=== PATIENT | male | born 1945 | race Caucasian/White ===

== ENCOUNTER 2024-07-18 03:19 | Inpatient (IN) | payer OTHER ==
[2024-07-18] MEDS ORDERED: VANCOMYCIN 1 GRAM (PRE-DOCKED) 1,000 MG/250 ML BAG IVPB ONE (03:38)
[2024-07-18] MEDS ORDERED: CEFEPIME 1 GM/100 ML BAG IVPB ONE (03:39)
[2024-07-18 03:40] LABS: VENOUS BASE EXCESS -3.4 mmol/L (-2-2); VENOUS O2 SATURATION 79.1 % (70-80); VENOUS PCO2 66.4 mmHg (38-52); VENOUS PH 7.21 (7.310-7.410)
[2024-07-18 03:42] LABS: BASO % 0.1 % (0-2.0); EOS % 0.1 % (0-4.5); HEMATOCRIT 41.6 % (35.4-49); HEMOGLOBIN 13.4 GM/dL (11.7-16.9); LYMPH % 5.2 % (8-40); MCH 29.8 pg (25.7-33.7); MCHC 32.3 g/dl (32.0-35.9); MEAN CELL VOLUME 92.1 fl (80-96); MEAN PLT VOLUME 7.2 fl (7.5-11.1); MONO % 10.3 % (3.8-10.2); NEUT % 84.3 % (42.8-82.8); PLATELET COUNT 290 10^3/uL (134-434); RBC 4.51 M/mm3 (4.00-5.60); RDW 14.2 % (11.9-15.9); WHITE BLOOD COUNT 15.5 K/mm3 (4.0-10.0)
[2024-07-18] MEDS: SODIUM CHLORIDE 0.9% 500 ML INFUS.BAG IV ONE (03:44)
[2024-07-18] MEDS: CEFEPIME HCL 1 GM VIAL (RESTRICTED TO ID) IVPB ONE (03:44)
[2024-07-18] MEDS: ALBUTEROL SO4 2.5/IPRATROPIUM 0.5 INH SOL 3 ML VIAL.NEB. NEB SCH ×2 (03:44→16:30)
[2024-07-18] MEDS: methylPREDNISolone NA SUCC 125 MG/2 ML VIAL IVPUSH ONE (03:44)
[2024-07-18] MEDS ORDERED: ACETAMINOPHEN INJECTION 100 ML ONE (03:45)
[2024-07-18] MEDS: ACETAMINOPHEN 1000 MG/100 ML BAG IVPB ONE (03:47)
[2024-07-18 03:56] LABS: INR 1.11 (0.83-1.09); PROTHROMBIN TIME (PATIENT) 12.5 SEC (9.7-13.0)
[2024-07-18 03:58] LABS: ACTIVATED PTT 33.6 SECONDS (25.2-36.5)
[2024-07-18 04:00] LABS: POTASSIUM 4.5 mmol/L (3.5-5.1)
[2024-07-18 04:03] LABS: ALBUMIN 3.2 g/dl (3.4-5.0); MAGNESIUM 2.3 mg/dL (1.8-2.4)
[2024-07-18 04:06] LABS: CREATININE 0.8 mg/dL (0.55-1.3); PHOSPHOROUS 3.2 mg/dL (2.5-4.9)
[2024-07-18 04:07] LABS: BILIRUBIN,TOTAL 0.5 mg/dL (0.2-1); TOT PROT 6.8 g/dl (6.4-8.2)
[2024-07-18 04:11] LABS: N-TERMINAL BNP 1590.4 pg/ml (5-450)
[2024-07-18] MEDS: VANCOMYCIN 1,000 MG in DEXTROSE 5%-WATER - 250 ML IVPB ONE (04:12)
[2024-07-18] MEDS ORDERED: ETOMIDATE 20 MG/10 ML VIAL IVPUSH ONE (04:36)
[2024-07-18] MEDS ORDERED: ROCURONIUM BROMIDE 50 MG/5 ML SYRINGE ONE (04:36)
[2024-07-18] MEDS ORDERED: ACETAMINOPHEN 1000 MG/100 ML BAG IVPB PRN (05:29)
[2024-07-18 05:39] LABS: EPI CELLS 7 /uL (0-25.1); HYALINE CASTS 1 /uL (0-3.1); URINE APPEARANCE CLOUDY; URINE BACTERIA >9,000 /uL (0-1359); URINE BILIRUBIN NEGATIVE (NEGATIVE); URINE COLOR YELLOW; URINE GLUCOSE (UA) NEGATIVE (NEGATIVE); URINE KETONE NEGATIVE (NEGATIVE); URINE LEUK ESTERASE 2+ (NEGATIVE); URINE NITRITE POSITIVE (NEGATIVE); URINE PROTEIN 2+ (NEGATIVE); URINE RBC 63 /uL (0-23.9); URINE UROBILINOGEN 0.2 mg/dL (0.2-1.0); URINE WBC 1321 /uL (0-25.8)
[2024-07-18] MEDS: ROCURONIUM BROMIDE 50 MG/5 ML VIAL IV ONE (05:41)
[2024-07-18] MEDS: ETOMIDATE 20 MG/10 ML VIAL IVPUSH ONE (05:41)
[2024-07-18] MEDS ORDERED: AMIODARONE IN DEXTROSE,ISO-OSM 150 MG/100 ML BAG ONE (05:51)
[2024-07-18] MEDS: FENTANYL NS IVPB 500 MCG/100 ML BAG IVPB SCH (05:56)
[2024-07-18] MEDS: PROPOFOL 1,000,000 MCG/100 ML VIAL IVPB SCH (05:56)
[2024-07-18] MEDS: AMIODARONE IN DEXTROSE,ISO-OSM 150 MG/100 ML BAG IVPB ONE (05:57)
[2024-07-18] MEDS: NOREPINEPHRINE BITARTRATE 4,000 MCG in DEXTROSE 5%-WATER - 496 ML IV SCH (06:00)
[2024-07-18] MEDS: AMIODARONE IN DEXTROSE,ISO-OSM 360 MG/200 ML BAG IV SCH ×2 (06:00→12:22)
[2024-07-18] MEDS ORDERED: NOREPINEPHRINE BITARTRATE 4 MG/4 ML ML IV ONE (06:20)
[2024-07-18 06:23] LABS: ARTERIAL BLD GAS O2 SATURATION 99.1 % (95-98); ARTERIAL BLOOD GAS BASE EXCESS -2.2 mmol/L (-2-2); ARTERIAL BLOOD GAS PO2 183.4 mmHg (80-100); ARTERIAL BLOOD GAS pH 7.308 (7.350-7.450)
[2024-07-18 06:24] LABS: ALLENS TEST POSITIVE; VENT MODE A/C
[2024-07-18 06:25] LABS: VENT RATE 20
[2024-07-18] MEDS: MIDAZOLAM IN 0.9 % SOD.CHLORID 100 MG/100 ML PLAST..BAG IVPB SCH (07:49)
[2024-07-18] MEDS: PANTOPRAZOLE SODIUM 40 MG VIAL IVPUSH SCH (09:09)
[2024-07-18] MEDS: PIPERACILLIN/TAZOB 4.5 GM 4.5 GM in DEXTROSE 5%-WATER 100 ML IVPB SCH ×2 (09:09→17:19)
[2024-07-18] MEDS: ENOXAPARIN NA (PORCINE) 40 MG/0.4 ML DISP.SYRIN SQ SCH (09:09)
[2024-07-18] MEDS: POLYETHYLENE GLYCOL (HEALTHYLAX) 3350 17 GM PACKET PO SCH (09:09)
[2024-07-18] MEDS: HYDROCORTISONE SOD SUCCINATE 100 MG/2 ML VIAL IVPUSH SCH (09:49)
[2024-07-18] MEDS: OFLOXACIN 0.3% OPHTHALMIC SOLUTION 5 ML BOTTLE OU SCH (09:50)
[2024-07-18] MEDS: MUPIROCIN 2% TOPICAL OINTMENT FOR DECOLONIZATION NS SCH (09:50)
[2024-07-18] MEDS ORDERED: ALBUTEROL SO4 2.5/IPRATROPIUM 0.5 INH SOL 3 ML VIAL.NEB. NEB SCH (12:45)
[2024-07-18] MEDS ORDERED: VANCOMYCIN PREMIX 1.5 GM 1,500 MG/300 ML BAG IVPB SCH (15:00)
[2024-07-18] MEDS: VANCOMYCIN PREMIX 1.5 GM 1,500 MG/300 ML BAG IVPB SCH (20:40)
[2024-07-18] MEDS: CHLORHEXIDINE GLUCONATE 4% CLEANSER FOR DECOLONIZATION TP SCH (23:23)
[2024-07-19 06:56] LABS: HEMATOCRIT 36.2 % (35.4-49); HEMOGLOBIN 11.9 GM/dL (11.7-16.9); MCH 29.6 pg (25.7-33.7); MCHC 32.8 g/dl (32.0-35.9); MEAN CELL VOLUME 90.2 fl (80-96); MEAN PLT VOLUME 7.6 fl (7.5-11.1); PLATELET COUNT 279 10^3/uL (134-434); RBC 4.01 M/mm3 (4.00-5.60); WHITE BLOOD COUNT 21.5 K/mm3 (4.0-10.0)
[2024-07-19 06:57] LABS: CALCIUM 8.8 mg/dL (8.5-10.1)
[2024-07-19 07:01] LABS: CREATININE 0.9 mg/dL (0.55-1.3)
[2024-07-19 07:02] LABS: TOT PROT 5.3 g/dl (6.4-8.2)
[2024-07-19 09:06] LABS: ANISOCYTOSIS 0; MACROCYTOSIS 0
[2024-07-19] MEDS: KCL 10 MEQ IVPB 10 MEQ/100 ML INFUS.BAG IVPB SCH (09:15)
[2024-07-19] MEDS: POTASSIUM CHLORIDE ORAL LIQUID 20 MEQ/15 ML PO ONE (09:17)
[2024-07-19 09:20] LABS: POTASSIUM 3.3 mmol/L (3.5-5.1)
[2024-07-19 09:22] LABS: ALBUMIN 2.4 g/dl (3.4-5.0); BLOOD UREA NITROGEN 25.6 mg/dL (7-18); MAGNESIUM 2.3 mg/dL (1.8-2.4)
[2024-07-19 09:32] LABS: BILIRUBIN,TOTAL 0.4 mg/dL (0.2-1)
[2024-07-20 06:50] LABS: HEMATOCRIT 35.1 % (35.4-49); HEMOGLOBIN 11.5 GM/dL (11.7-16.9); MCH 29.6 pg (25.7-33.7); MCHC 32.8 g/dl (32.0-35.9); MEAN CELL VOLUME 90.2 fl (80-96); MEAN PLT VOLUME 7.6 fl (7.5-11.1); PLATELET COUNT 298 10^3/uL (134-434); RBC 3.89 M/mm3 (4.00-5.60); RDW 13.6 % (11.9-15.9); WHITE BLOOD COUNT 22.4 K/mm3 (4.0-10.0)
[2024-07-20 06:55] LABS: POTASSIUM 3.3 mmol/L (3.5-5.1)
[2024-07-20 06:58] LABS: ALBUMIN 2.2 g/dl (3.4-5.0); BLOOD UREA NITROGEN 25.5 mg/dL (7-18); CALCIUM 8.3 mg/dL (8.5-10.1); MAGNESIUM 2.5 mg/dL (1.8-2.4)
[2024-07-20 07:01] LABS: CREATININE 0.7 mg/dL (0.55-1.3)
[2024-07-20 07:02] LABS: BILIRUBIN,TOTAL 0.3 mg/dL (0.2-1); PHOSPHOROUS 2.7 mg/dL (2.5-4.9)
[2024-07-20 07:03] LABS: TOT PROT 5.2 g/dl (6.4-8.2)
[2024-07-20] MEDS: KCL 10 MEQ IVPB 10 MEQ/100 ML INFUS.BAG IVPB SCH (08:52)
[2024-07-20 09:43] LABS: ANISOCYTOSIS 0; HELMET CELLS 0; HOWELL-JOLLY BODIES 0; MACROCYTOSIS 0; OVALOCYTE 0; ROULEAU 0; SICKELED CELLS 0; TARGET CELLS 0; TEAR DROP CELLS 0; TOXIC GRANULATION 0
[2024-07-20] MEDS ORDERED: HYDROCORTISONE SOD SUCCINATE 100 MG/2 ML VIAL IVPUSH SCH (11:15)
[2024-07-20] MEDS: METOPROLOL TARTRATE 5 MG/5 ML VIAL IVPUSH PRN (11:36)
[2024-07-20] MEDS: ACETAMINOPHEN 1000 MG/100 ML BAG IVPB PRN (21:07)
[2024-07-20] MEDS: HYDROCORTISONE SOD SUCCINATE 100 MG/2 ML VIAL IVPUSH SCH (21:08)
[2024-07-21 06:52] LABS: HEMATOCRIT 36.5 % (35.4-49); HEMOGLOBIN 11.9 GM/dL (11.7-16.9); MCH 29.8 pg (25.7-33.7); MCHC 32.7 g/dl (32.0-35.9); MEAN CELL VOLUME 91.1 fl (80-96); MEAN PLT VOLUME 7.5 fl (7.5-11.1); PLATELET COUNT 311 10^3/uL (134-434); WHITE BLOOD COUNT 20.2 K/mm3 (4.0-10.0)
[2024-07-21 07:25] LABS: POTASSIUM 3.4 mmol/L (3.5-5.1)
[2024-07-21 07:32] LABS: CALCIUM 8.5 mg/dL (8.5-10.1)
[2024-07-21 07:33] LABS: ALBUMIN 2.2 g/dl (3.4-5.0); BLOOD UREA NITROGEN 23.7 mg/dL (7-18); MAGNESIUM 2.4 mg/dL (1.8-2.4)
[2024-07-21 07:36] LABS: CREATININE 0.7 mg/dL (0.55-1.3)
[2024-07-21 07:38] LABS: BILIRUBIN,TOTAL 0.5 mg/dL (0.2-1); TOT PROT 5.3 g/dl (6.4-8.2)
[2024-07-21] MEDS: KCL 10 MEQ IVPB 10 MEQ/100 ML INFUS.BAG IVPB SCH (08:15)
[2024-07-21] MEDS ORDERED: ACETAMINOPHEN 1000 MG/100 ML BAG IVPB PRN (08:51)
[2024-07-21] MEDS: POTASSIUM CHLORIDE ORAL LIQUID 20 MEQ/15 ML PO ONE (08:54)
[2024-07-21] MEDS: MEROPENEM 1 GM in DEXTROSE 5%-WATER 100 ML IVPB SCH ×2 (09:34→17:11)
[2024-07-21 09:36] LABS: ANISOCYTOSIS 0; MACROCYTOSIS 0
[2024-07-21] MEDS: METOPROLOL TARTRATE 25 MG TABLET (FP) NGT SCH (10:56)
[2024-07-21] MEDS ORDERED: MEROPENEM 1 GM in DEXTROSE 5%-WATER 100 ML IVPB SCH (18:00)
[2024-07-21] MEDS: HYDROCORTISONE SOD SUCCINATE 100 MG/2 ML VIAL IVPUSH SCH (21:19)
[2024-07-21] MEDS: LITHIUM CARBONATE 300 MG CAPSULE PO SCH (21:21)
[2024-07-22] MEDS: LURASIDONE HCL 40 MG TABLET PO SCH (06:10)
[2024-07-22 06:50] LABS: HEMATOCRIT 36.6 % (35.4-49); MCH 30.3 pg (25.7-33.7); MCHC 32.8 g/dl (32.0-35.9); MEAN CELL VOLUME 92.4 fl (80-96); MEAN PLT VOLUME 7.6 fl (7.5-11.1); PLATELET COUNT 328 10^3/uL (134-434); RBC 3.96 M/mm3 (4.00-5.60); RDW 14.4 % (11.9-15.9); WHITE BLOOD COUNT 20.7 K/mm3 (4.0-10.0)
[2024-07-22 07:13] LABS: POTASSIUM 4.2 mmol/L (3.5-5.1)
[2024-07-22 07:20] LABS: CALCIUM 8.4 mg/dL (8.5-10.1)
[2024-07-22 07:21] LABS: ALBUMIN 2.2 g/dl (3.4-5.0); BLOOD UREA NITROGEN 26.7 mg/dL (7-18); MAGNESIUM 2.5 mg/dL (1.8-2.4)
[2024-07-22 07:22] LABS: BILIRUBIN,TOTAL 0.4 mg/dL (0.2-1)
[2024-07-22 07:23] LABS: TOT PROT 5.6 g/dl (6.4-8.2)
[2024-07-22 07:24] LABS: CREATININE 0.6 mg/dL (0.55-1.3)
[2024-07-22 16:04] VITALS: BMI 40.7
[2024-07-23 06:49] LABS: HEMATOCRIT 35.1 % (35.4-49); HEMOGLOBIN 11.5 GM/dL (11.7-16.9); MCH 30.8 pg (25.7-33.7); MCHC 32.9 g/dl (32.0-35.9); MEAN CELL VOLUME 93.6 fl (80-96); MEAN PLT VOLUME 7.4 fl (7.5-11.1); PLATELET COUNT 305 10^3/uL (134-434); POTASSIUM 4.1 mmol/L (3.5-5.1); RBC 3.75 M/mm3 (4.00-5.60); RDW 14.3 % (11.9-15.9); WHITE BLOOD COUNT 17.8 K/mm3 (4.0-10.0)
[2024-07-23 06:51] LABS: CALCIUM 8.4 mg/dL (8.5-10.1)
[2024-07-23 06:52] LABS: ALBUMIN 2.2 g/dl (3.4-5.0)
[2024-07-23 06:55] LABS: CREATININE 0.7 mg/dL (0.55-1.3)
[2024-07-23 06:56] LABS: BILIRUBIN,TOTAL 0.4 mg/dL (0.2-1); TOT PROT 5.3 g/dl (6.4-8.2)
[2024-07-23 08:47] LABS: ANISOCYTOSIS 0; MACROCYTOSIS 0
[2024-07-23] MEDS ORDERED: SCOPOLAMINE HYDROBROMIDE 1 PATCH PATCH.TD72 TD SCH (11:15)
[2024-07-23] MEDS: FUROSEMIDE 40 MG/4 ML INJECTABLE VIAL IVPUSH ONE (16:33)
[2024-07-23 18:20] LABS: ARTERIAL BLD GAS O2 SATURATION 91.2 % (95-98); ARTERIAL BLOOD GAS pH 7.428 (7.350-7.450)
[2024-07-23 18:23] LABS: ALLENS TEST POSITIVE
[2024-07-24 06:38] LABS: HEMATOCRIT 37.8 % (35.4-49); HEMOGLOBIN 12.5 GM/dL (11.7-16.9); MCH 31.6 pg (25.7-33.7); MEAN CELL VOLUME 95.7 fl (80-96); MEAN PLT VOLUME 7.3 fl (7.5-11.1); PLATELET COUNT 321 10^3/uL (134-434); RBC 3.95 M/mm3 (4.00-5.60); RDW 14.3 % (11.9-15.9); WHITE BLOOD COUNT 18.2 K/mm3 (4.0-10.0)
[2024-07-24 06:55] LABS: POTASSIUM 4.4 mmol/L (3.5-5.1)
[2024-07-24 06:58] LABS: CALCIUM 8.5 mg/dL (8.5-10.1)
[2024-07-24 06:59] LABS: ALBUMIN 2.6 g/dl (3.4-5.0); MAGNESIUM 2.2 mg/dL (1.8-2.4)
[2024-07-24 07:01] LABS: CREATININE 0.8 mg/dL (0.55-1.3); PHOSPHOROUS 3.2 mg/dL (2.5-4.9)
[2024-07-24 07:03] LABS: BILIRUBIN,TOTAL 0.9 mg/dL (0.2-1)
[2024-07-24 09:10] LABS: ALLENS TEST POSITIVE; ARTERIAL BLD GAS O2 SATURATION 95.2 % (95-98); ARTERIAL BLOOD GAS BASE EXCESS 3.3 mmol/L (-2-2); ARTERIAL BLOOD GAS PO2 74.6 mmHg (80-100); ARTERIAL BLOOD GAS pH 7.424 (7.350-7.450)
[2024-07-25 07:47] LABS: POTASSIUM 4.4 mmol/L (3.5-5.1)
[2024-07-25 07:51] LABS: BLOOD UREA NITROGEN 35.3 mg/dL (7-18); CALCIUM 8.8 mg/dL (8.5-10.1); MAGNESIUM 2.5 mg/dL (1.8-2.4)
[2024-07-25 07:54] LABS: CREATININE 0.7 mg/dL (0.55-1.3); PHOSPHOROUS 3.2 mg/dL (2.5-4.9)
[2024-07-25 08:18] LABS: HEMATOCRIT 35.6 % (35.4-49); HEMOGLOBIN 11.9 GM/dL (11.7-16.9); MCHC 33.3 g/dl (32.0-35.9); MEAN CELL VOLUME 95.9 fl (80-96); MEAN PLT VOLUME 7.8 fl (7.5-11.1); PLATELET COUNT 324 10^3/uL (134-434); RBC 3.71 M/mm3 (4.00-5.60); RDW 14.1 % (11.9-15.9); WHITE BLOOD COUNT 16.1 K/mm3 (4.0-10.0)
[2024-07-25] MEDS: FUROSEMIDE 40 MG/4 ML INJECTABLE VIAL IVPUSH ONE (14:06)
[2024-07-25] MEDS: ALBUTEROL SO4 2.5/IPRATROPIUM 0.5 INH SOL 3 ML VIAL.NEB. NEB SCH (20:30)
[2024-07-25] MEDS: POLYETHYLENE GLYCOL (HEALTHYLAX) 3350 17 GM PACKET PO SCH (21:17)
[2024-07-25] MEDS: LITHIUM CARBONATE 300 MG CAPSULE PO SCH (21:17)
[2024-07-25] MEDS: METOPROLOL TARTRATE 25 MG TABLET (FP) NGT SCH (21:20)
[2024-07-26] MEDS: MEROPENEM 1 GM in DEXTROSE 5%-WATER 100 ML IVPB SCH (01:26)
[2024-07-26] MEDS: LURASIDONE HCL 40 MG TABLET PO SCH (06:42)
[2024-07-26 09:17] LABS: HEMATOCRIT 34.1 % (35.4-49); HEMOGLOBIN 11.3 GM/dL (11.7-16.9); MCHC 33.1 g/dl (32.0-35.9); MEAN PLT VOLUME 7.7 fl (7.5-11.1); PLATELET COUNT 341 10^3/uL (134-434); RBC 3.52 M/mm3 (4.00-5.60); WHITE BLOOD COUNT 13.5 K/mm3 (4.0-10.0)
[2024-07-26] MEDS: ENOXAPARIN NA (PORCINE) 40 MG/0.4 ML DISP.SYRIN SQ SCH (09:22)
[2024-07-26 09:33] LABS: POTASSIUM 4.1 mmol/L (3.5-5.1)
[2024-07-26 09:35] LABS: CALCIUM 8.8 mg/dL (8.5-10.1)
[2024-07-26 09:36] LABS: ALBUMIN 2.4 g/dl (3.4-5.0); MAGNESIUM 2.5 mg/dL (1.8-2.4)
[2024-07-26 09:39] LABS: CREATININE 0.8 mg/dL (0.55-1.3); PHOSPHOROUS 3.9 mg/dL (2.5-4.9)
[2024-07-26 09:40] LABS: BILIRUBIN,TOTAL 0.9 mg/dL (0.2-1); TOT PROT 5.6 g/dl (6.4-8.2)
[2024-07-26] MEDS: LORazepam 0.5 MG TABLET PO PRN (10:06)
[2024-07-26 10:19] LABS: ANISOCYTOSIS 0; HELMET CELLS 0; HOWELL-JOLLY BODIES 0; MACROCYTOSIS 0; OVALOCYTE 0; ROULEAU 0; SICKELED CELLS 0; TARGET CELLS 0; TEAR DROP CELLS 0; TOXIC GRANULATION 0
[2024-07-26] MEDS: PANTOPRAZOLE SODIUM 40 MG VIAL IVPUSH SCH (18:07)
[2024-07-26] MEDS: APIXABAN 5 MG TABLET PO SCH (21:16)
[2024-07-26] MEDS ORDERED: APIXABAN 2.5 MG TABLET PO SCH (22:00)
[2024-07-27 07:38] LABS: POTASSIUM 4.4 mmol/L (3.5-5.1)
[2024-07-27 07:48] LABS: CALCIUM 8.9 mg/dL (8.5-10.1)
[2024-07-27 07:49] LABS: ALBUMIN 2.7 g/dl (3.4-5.0); BLOOD UREA NITROGEN 37.7 mg/dL (7-18)
[2024-07-27 07:52] LABS: CREATININE 0.7 mg/dL (0.55-1.3)
[2024-07-27 07:53] LABS: BILIRUBIN,TOTAL 0.8 mg/dL (0.2-1); HEMATOCRIT 35.7 % (35.4-49); MCH 32.2 pg (25.7-33.7); MCHC 33.8 g/dl (32.0-35.9); MEAN CELL VOLUME 95.3 fl (80-96); MEAN PLT VOLUME 7.6 fl (7.5-11.1); PLATELET COUNT 409 10^3/uL (134-434); RBC 3.75 M/mm3 (4.00-5.60); RDW 14.5 % (11.9-15.9); TOT PROT 6.1 g/dl (6.4-8.2); WHITE BLOOD COUNT 13.3 K/mm3 (4.0-10.0)
[2024-07-27] MEDS: CYANOCOBALAMIN 1,000 MCG TABLET (FP) PO SCH (10:08)
[2024-07-27] MEDS: HALOPERIDOL LACTATE 5 MG/ML IM ONE (14:06)
[2024-07-27] MEDS: METOPROLOL TARTRATE 5 MG/5 ML VIAL IVPUSH PRN (14:54)
[2024-07-27] MEDS: methylPREDNISolone NA SUCC 40 MG/1 ML VIAL IVPUSH SCH (19:29)
[2024-07-27 20:25] LABS: ARTERIAL BLD GAS O2 SATURATION 98.7 % (95-98); ARTERIAL BLOOD GAS BASE EXCESS 4.3 mmol/L (-2-2); ARTERIAL BLOOD GAS pH 7.415 (7.350-7.450)
[2024-07-27 20:27] LABS: ALLENS TEST POSITIVE; VENT MODE S/T; VENT RATE 10
[2024-07-28 07:32] LABS: HEMATOCRIT 38.5 % (35.4-49); HEMOGLOBIN 12.4 GM/dL (11.7-16.9); MCH 31.6 pg (25.7-33.7); MCHC 32.2 g/dl (32.0-35.9); MEAN CELL VOLUME 98.1 fl (80-96); MEAN PLT VOLUME 7.7 fl (7.5-11.1); PLATELET COUNT 478 10^3/uL (134-434); RBC 3.92 M/mm3 (4.00-5.60); RDW 14.6 % (11.9-15.9); WHITE BLOOD COUNT 17.5 K/mm3 (4.0-10.0)
[2024-07-28 07:34] LABS: POTASSIUM 5.4 mmol/L (3.5-5.1)
[2024-07-28 07:42] LABS: ALBUMIN 2.8 g/dl (3.4-5.0); BLOOD UREA NITROGEN 33.3 mg/dL (7-18)
[2024-07-28 07:44] LABS: BILIRUBIN,TOTAL 0.7 mg/dL (0.2-1); TOT PROT 6.4 g/dl (6.4-8.2)
[2024-07-28 07:45] LABS: CALCIUM 9.2 mg/dL (8.5-10.1); CREATININE 0.7 mg/dL (0.55-1.3)
[2024-07-28 07:46] LABS: MAGNESIUM 2.6 mg/dL (1.8-2.4)
[2024-07-28 08:40] LABS: ANISOCYTOSIS 0; MACROCYTOSIS 0
[2024-07-28] MEDS: ERTAPENEM SODIUM 1 GM in SODIUM CHLORIDE 50 ML IVPB SCH (09:28)
[2024-07-28] MEDS: SODIUM CHLORIDE 0.45% 1,000 ML IV SCH (11:26)
[2024-07-29 06:56] LABS: BASO % 0.1 % (0-2.0); HEMATOCRIT 36.8 % (35.4-49); HEMOGLOBIN 12.1 GM/dL (11.7-16.9); LYMPH % 5.9 % (8-40); MCH 32.1 pg (25.7-33.7); MCHC 32.8 g/dl (32.0-35.9); MEAN CELL VOLUME 97.7 fl (80-96); MEAN PLT VOLUME 7.4 fl (7.5-11.1); MONO % 3.2 % (3.8-10.2); NEUT % 90.8 % (42.8-82.8); PLATELET COUNT 427 10^3/uL (134-434); RBC 3.77 M/mm3 (4.00-5.60); RDW 14.1 % (11.9-15.9); WHITE BLOOD COUNT 15.1 K/mm3 (4.0-10.0)
[2024-07-29 07:06] LABS: POTASSIUM 4.8 mmol/L (3.5-5.1)
[2024-07-29 07:09] LABS: ALBUMIN 2.5 g/dl (3.4-5.0); BLOOD UREA NITROGEN 31.7 mg/dL (7-18); MAGNESIUM 2.4 mg/dL (1.8-2.4)
[2024-07-29 07:12] LABS: CREATININE 0.6 mg/dL (0.55-1.3); PHOSPHOROUS 2.7 mg/dL (2.5-4.9)
[2024-07-29 07:13] LABS: BILIRUBIN,TOTAL 0.6 mg/dL (0.2-1); TOT PROT 5.7 g/dl (6.4-8.2)
[2024-07-29] MEDS ORDERED: DEXTROSE 5%-0.45% SALINE 1,000 ML IV SCH (14:00)
[2024-07-29] MEDS: methylPREDNISolone NA SUCC 40 MG/1 ML VIAL IVPUSH SCH (21:22)
[2024-07-29] MEDS: SODIUM CHLORIDE 0.45% 1,000 ML IV SCH (21:23)
[2024-07-30 08:07] LABS: HEMATOCRIT 36.8 % (35.4-49); HEMOGLOBIN 12.1 GM/dL (11.7-16.9); LYMPH % 6.7 % (8-40); MCH 31.3 pg (25.7-33.7); MCHC 32.8 g/dl (32.0-35.9); MEAN CELL VOLUME 95.4 fl (80-96); MEAN PLT VOLUME 7.5 fl (7.5-11.1); MONO % 5.5 % (3.8-10.2); NEUT % 87.8 % (42.8-82.8); PLATELET COUNT 493 10^3/uL (134-434); RBC 3.86 M/mm3 (4.00-5.60); RDW 14.3 % (11.9-15.9); WHITE BLOOD COUNT 16.3 K/mm3 (4.0-10.0)
[2024-07-30 08:12] LABS: POTASSIUM 5.1 mmol/L (3.5-5.1)
[2024-07-30 08:18] LABS: ALBUMIN 2.8 g/dl (3.4-5.0); BLOOD UREA NITROGEN 33.2 mg/dL (7-18); CALCIUM 8.8 mg/dL (8.5-10.1); MAGNESIUM 2.5 mg/dL (1.8-2.4)
[2024-07-30 08:22] LABS: CREATININE 0.7 mg/dL (0.55-1.3); PHOSPHOROUS 3.4 mg/dL (2.5-4.9)
[2024-07-30 08:23] LABS: BILIRUBIN,TOTAL 0.8 mg/dL (0.2-1); TOT PROT 5.9 g/dl (6.4-8.2)
[2024-07-31] MEDS: LORazepam 2 MG/ML SDV VIAL IVPUSH ONE (00:14)
[2024-07-31 08:03] LABS: BASO % 0.4 % (0-2.0); HEMATOCRIT 39.8 % (35.4-49); HEMOGLOBIN 12.9 GM/dL (11.7-16.9); LYMPH % 5.2 % (8-40); MCHC 32.4 g/dl (32.0-35.9); MEAN CELL VOLUME 95.5 fl (80-96); MEAN PLT VOLUME 7.6 fl (7.5-11.1); MONO % 6.5 % (3.8-10.2); NEUT % 87.9 % (42.8-82.8); PLATELET COUNT 457 10^3/uL (134-434); RBC 4.17 M/mm3 (4.00-5.60); RDW 14.2 % (11.9-15.9); WHITE BLOOD COUNT 15.9 K/mm3 (4.0-10.0)
[2024-07-31 08:14] LABS: POTASSIUM 5.1 mmol/L (3.5-5.1)
[2024-07-31 08:16] LABS: ALBUMIN 2.8 g/dl (3.4-5.0)
[2024-07-31 08:19] LABS: MAGNESIUM 2.5 mg/dL (1.8-2.4)
[2024-07-31 08:20] LABS: CREATININE 0.7 mg/dL (0.55-1.3); PHOSPHOROUS 4.2 mg/dL (2.5-4.9)
[2024-07-31 08:21] LABS: BILIRUBIN,TOTAL 0.6 mg/dL (0.2-1); TOT PROT 6.1 g/dl (6.4-8.2)
[2024-07-31 09:59] LABS: ARTERIAL BLD GAS O2 SATURATION 97.8 % (95-98); ARTERIAL BLOOD GAS BASE EXCESS 1.1 mmol/L (-2-2); ARTERIAL BLOOD GAS PO2 111.5 mmHg (80-100); ARTERIAL BLOOD GAS pH 7.353 (7.350-7.450)
[2024-07-31 10:05] LABS: ALLENS TEST POSITIVE
[2024-07-31] MEDS: guaiFENesin/D-METHORPHAN TAB.ER.12H PO SCH (12:57)
[2024-07-31] MEDS: DEXTROSE 5%-0.45% SALINE 1,000 ML IV SCH (12:58)
[2024-07-31] MEDS: MELATONIN 5 MG TABLETS PO SCH (21:08)
[2024-07-31] MEDS: HALOPERIDOL LACTATE 5 MG/ML IM PRN (22:17)
[2024-08-01 08:25] LABS: BASO % 0.1 % (0-2.0); EOS % 0.1 % (0-4.5); HEMATOCRIT 38.5 % (35.4-49); HEMOGLOBIN 12.5 GM/dL (11.7-16.9); LYMPH % 6.3 % (8-40); MCH 30.6 pg (25.7-33.7); MCHC 32.6 g/dl (32.0-35.9); MEAN CELL VOLUME 94.1 fl (80-96); MEAN PLT VOLUME 7.7 fl (7.5-11.1); NEUT % 88.5 % (42.8-82.8); PLATELET COUNT 365 10^3/uL (134-434); RBC 4.09 M/mm3 (4.00-5.60); RDW 14.3 % (11.9-15.9); WHITE BLOOD COUNT 13.8 K/mm3 (4.0-10.0)
[2024-08-01 08:39] LABS: POTASSIUM 5.3 mmol/L (3.5-5.1)
[2024-08-01 08:41] LABS: ALBUMIN 2.6 g/dl (3.4-5.0); BLOOD UREA NITROGEN 31.1 mg/dL (7-18); CALCIUM 8.5 mg/dL (8.5-10.1); MAGNESIUM 2.4 mg/dL (1.8-2.4)
[2024-08-01 08:44] LABS: CREATININE 0.7 mg/dL (0.55-1.3)
[2024-08-01 08:45] LABS: PHOSPHOROUS 3.6 mg/dL (2.5-4.9)
[2024-08-01 08:46] LABS: BILIRUBIN,TOTAL 0.8 mg/dL (0.2-1); TOT PROT 5.8 g/dl (6.4-8.2)
[2024-08-01] MEDS: SODIUM ZIRCONIUM CYCLOSILICATE (LOKELMA) 5 GM PACKET PO ONE (09:00)
[2024-08-01] MEDS: methylPREDNISolone NA SUCC 40 MG/1 ML VIAL IVPUSH SCH (11:19)
[2024-08-02 08:25] LABS: BASO % 0.2 % (0-2.0); EOS % 0.4 % (0-4.5); HEMATOCRIT 37.5 % (35.4-49); HEMOGLOBIN 12.4 GM/dL (11.7-16.9); LYMPH % 7.8 % (8-40); MCH 31.5 pg (25.7-33.7); MEAN CELL VOLUME 95.5 fl (80-96); MEAN PLT VOLUME 8.1 fl (7.5-11.1); MONO % 9.1 % (3.8-10.2); NEUT % 82.5 % (42.8-82.8); PLATELET COUNT 339 10^3/uL (134-434); RBC 3.93 M/mm3 (4.00-5.60); RDW 14.8 % (11.9-15.9); WHITE BLOOD COUNT 15.2 K/mm3 (4.0-10.0)
[2024-08-02 08:46] LABS: POTASSIUM 5.7 mmol/L (3.5-5.1)
[2024-08-02 08:47] LABS: CALCIUM 8.8 mg/dL (8.5-10.1)
[2024-08-02 08:48] LABS: BLOOD UREA NITROGEN 35.4 mg/dL (7-18); MAGNESIUM 2.4 mg/dL (1.8-2.4)
[2024-08-02 08:51] LABS: CREATININE 0.8 mg/dL (0.55-1.3); PHOSPHOROUS 3.8 mg/dL (2.5-4.9)
[2024-08-02] MEDS: SODIUM ZIRCONIUM CYCLOSILICATE (LOKELMA) 5 GM PACKET PO ONE (15:00)
[2024-08-03 07:23] LABS: BASO % 0.3 % (0-2.0); EOS % 1.2 % (0-4.5); HEMATOCRIT 35.8 % (35.4-49); HEMOGLOBIN 11.6 GM/dL (11.7-16.9); MCH 30.3 pg (25.7-33.7); MCHC 32.3 g/dl (32.0-35.9); NEUT % 79.5 % (42.8-82.8); PLATELET COUNT 335 10^3/uL (134-434); RBC 3.81 M/mm3 (4.00-5.60); RDW 14.5 % (11.9-15.9); WHITE BLOOD COUNT 13.6 K/mm3 (4.0-10.0)
[2024-08-03 07:43] LABS: POTASSIUM 4.9 mmol/L (3.5-5.1)
[2024-08-03 07:52] LABS: ALBUMIN 2.5 g/dl (3.4-5.0); BLOOD UREA NITROGEN 31.9 mg/dL (7-18); CALCIUM 8.7 mg/dL (8.5-10.1)
[2024-08-03 07:55] LABS: CREATININE 0.8 mg/dL (0.55-1.3)
[2024-08-03 07:57] LABS: BILIRUBIN,TOTAL 0.6 mg/dL (0.2-1); TOT PROT 5.4 g/dl (6.4-8.2)
[2024-08-05 07:43] LABS: HEMATOCRIT 37.7 % (35.4-49); HEMOGLOBIN 11.8 GM/dL (11.7-16.9); MCHC 31.3 g/dl (32.0-35.9); MEAN CELL VOLUME 95.7 fl (80-96); MEAN PLT VOLUME 7.9 fl (7.5-11.1); PLATELET COUNT 293 10^3/uL (134-434); RBC 3.94 M/mm3 (4.00-5.60); RDW 15.1 % (11.9-15.9)
[2024-08-05 08:00] LABS: POTASSIUM 4.9 mmol/L (3.5-5.1)
[2024-08-05 08:03] LABS: CALCIUM 9.1 mg/dL (8.5-10.1)
[2024-08-05 08:04] LABS: ALBUMIN 2.6 g/dl (3.4-5.0); BLOOD UREA NITROGEN 25.5 mg/dL (7-18)
[2024-08-05 08:07] LABS: CREATININE 0.9 mg/dL (0.55-1.3)
[2024-08-05 08:08] LABS: BILIRUBIN,TOTAL 0.7 mg/dL (0.2-1); TOT PROT 5.5 g/dl (6.4-8.2)
[2024-08-05] MEDS: methylPREDNISolone NA SUCC 40 MG/1 ML VIAL IVPUSH SCH (09:51)
[2024-08-05 21:59] VITALS: RESP 18
[2024-08-06 11:16] LABS: BASO % 0.5 % (0-2.0); EOS % 1.9 % (0-4.5); HEMATOCRIT 37.8 % (35.4-49); HEMOGLOBIN 11.9 GM/dL (11.7-16.9); LYMPH % 10.1 % (8-40); MCH 29.9 pg (25.7-33.7); MCHC 31.4 g/dl (32.0-35.9); MEAN CELL VOLUME 95.1 fl (80-96); MEAN PLT VOLUME 8.6 fl (7.5-11.1); MONO % 9.1 % (3.8-10.2); NEUT % 78.4 % (42.8-82.8); PLATELET COUNT 223 10^3/uL (134-434); RBC 3.97 M/mm3 (4.00-5.60); RDW 15.3 % (11.9-15.9); WHITE BLOOD COUNT 18.6 K/mm3 (4.0-10.0)
[2024-08-06 11:32] LABS: CALCIUM 8.8 mg/dL (8.5-10.1)
[2024-08-06 11:33] LABS: ALBUMIN 2.5 g/dl (3.4-5.0); BLOOD UREA NITROGEN 27.5 mg/dL (7-18)
[2024-08-06 11:36] LABS: CREATININE 0.9 mg/dL (0.55-1.3)
[2024-08-06 11:37] LABS: BILIRUBIN,TOTAL 0.6 mg/dL (0.2-1); TOT PROT 5.2 g/dl (6.4-8.2)
[2024-08-06 18:59] VITALS: BP 114/68; PULSE 99; TEMP 98.4
== END 2024-08-06 19:47 | DRG 870 ==
LOC: JER 03:19 → JERBED 05:23 → JICU 05:45 → J2W 07-25 18:58 → J8W 08-05 14:42
PROVIDERS: ADMIT Internal Medicine Pulmonary Disease; ATTEND Nurse Practitioner Family
PROC: 0BH17EZ Insertion of Endotracheal Airway into Trachea, Via Natural or Artificial Opening (ICD-10-PCS; principal; 2024-07-18)
PROC: 5A1955Z Respiratory Ventilation, Greater than 96 Consecutive Hours (ICD-10-PCS; 2024-07-18)
PROC: 05HM33Z Insertion of Infusion Device into Right Internal Jugular Vein, Percutaneous Approach (ICD-10-PCS; 2024-07-18)
PROC: B543ZZA Ultrasonography of Right Jugular Veins, Guidance (ICD-10-PCS; 2024-07-18)
PROC: 4A133B1 Monitoring of Arterial Pressure, Peripheral, Percutaneous Approach (ICD-10-PCS; 2024-07-18)
PROC: 4A133J1 Monitoring of Arterial Pulse, Peripheral, Percutaneous Approach (ICD-10-PCS; 2024-07-18)
DX: A41.89 Other specified sepsis (principal); J96.01 Acute respiratory failure with hypoxia; J18.9 Pneumonia, unspecified organism; R65.21 Severe sepsis with septic shock; G93.41 Metabolic encephalopathy; N39.0 Urinary tract infection, site not specified; E87.0 Hyperosmolality and hypernatremia; I48.91 Unspecified atrial fibrillation; I10 Essential (primary) hypertension; I25.10 Atherosclerotic heart disease of native coronary artery without angina pectoris; E78.5 Hyperlipidemia, unspecified; F31.9 Bipolar disorder, unspecified; K59.00 Constipation, unspecified; K21.9 Gastro-esophageal reflux disease without esophagitis; F03.90 Unspecified dementia, unspecified severity, without behavioral disturbance, psychotic disturbance, mood disturbance, and anxiety; R50.9 Fever, unspecified; H10.89 Other conjunctivitis; B96.20 Unspecified Escherichia coli [E. coli] as the cause of diseases classified elsewhere; N40.0 Benign prostatic hyperplasia without lower urinary tract symptoms
CPT/HCPCS: 0241U-QW; 36415; 36600; 70450-TC; 70496-TC; 70498-TC; 71045-TC-FY; 80048; 80053; 80178; 81003; 82308; 82803; 82962; 83605; 83735; 83880; 84100; 84484; 85025; 85027; 85610; 85730; 86140; 87040; 87070; 87086; 87186; 87205; 87635; 93005; 93010; 93306-TC; 94002; 94640; 94660; 97161-GP; 99291; G0480; J0131; J0282